=== PATIENT | female | born 1985 | race Caucasian/White ===

== ENCOUNTER 2016-08-15 11:53 | Emergency (ER) | payer MEDICAID ==
[~2016-08-15] VITALS: Ht 157.5 cm; Wt 93.0 kg
[~2016-08-15 11:53] MED LIST: PREN1TAB49 PO
[2016-08-15 11:56] VITALS: Ht 157.5 cm; Wt 93.0 kg
[2016-08-15] MEDS ORDERED: morphine 4 MG/ML VIAL IV STA (13:47)
[2016-08-15] MEDS ORDERED: LIDOCAINE/MYLANTA 40 ML BTL PO STA (13:47)
[2016-08-15] MEDS ORDERED: SOD CHLORIDE 0.9% 1,000 ML IV STA (13:47)
[2016-08-15 14:18] LABS: ADD UMIC YES; URINE BILIRUBIN (Dip) NEGATIVE (NEGATIVE); URINE BLOOD (Dip) TRACE (NEGATIVE); URINE COLOR LT. YELLOW (YELLOW); URINE GLUCOSE (Dip) NEGATIVE (NEGATIVE); URINE KETONES (Dip) NEGATIVE (NEGATIVE); URINE LEUKOCYTE ESTERASE (Dip) NEGATIVE (NEGATIVE); URINE NITRITE (Dip) POSITIVE (NEGATIVE); URINE TOTAL PROTEIN (Dip) NEGATIVE (NEGATIVE); URINE UROBILINOGEN (Dip) 0.2 E.U./dL (0.1-1.0)
[2016-08-15 14:19] LABS: BASOPHILS % 0.4 % (0.0-2.0); EOSINOPHILS % 0.5 % (0.0-7.0); HEMOGLOBIN 12.4 g/dl (12.0-16.0); LYMPHOCYTES % 20.3 % (15.0-51.0); MEAN CORPUSCULAR HGB CONC 33.4 g/dl (32.0-37.0); MEAN CORPUSCULAR VOLUME 83.8 fl (82.0-101.0); MEAN PLATELET VOLUME 9.7 fl (7.4-10.4); MONOCYTE # 0.4 10^3/ul (0.3-0.9); MONOCYTES % 4.2 % (0.0-11.0); NEUTROPHIL # 7.5 10^3/ul (1.6-7.5); NEUTROPHILS % 74.6 % (39.0-77.0); PLATELET COUNT 254 10^3/UL (140-440); RED BLOOD COUNT 4.42 10^6/ul (4.20-5.40)
[2016-08-15 14:21] LABS: CONDITION 1; LH ANALYZER COMMENTS 1
[2016-08-15 14:26] LABS: ALBUMIN 4.4 g/dl (3.3-4.9); POTASSIUM 3.8 mmol/L (3.5-5.1)
[2016-08-15 14:28] LABS: BILIRUBIN,INDIRECT 0.3 mg/dl (0-1.1); BILIRUBIN,TOTAL 0.3 mg/dl (0.2-1.3); CREATININE 0.52 mg/dl (0.44-1.00)
[2016-08-15 14:29] LABS: ALBUMIN/GLOBULIN RATIO 1.07; CALCIUM 9.3 mg/dl (8.4-10.2); TOTAL PROTEIN 8.5 g/dl (6.1-8.1)
[2016-08-15 14:38] LABS: BACTERIA,URINE MODERATE; URINE RBCS 0-2 /HPF (0)
[2016-08-15] MEDS ORDERED: CEFTRIAXONE 1 GM/50 ML (PMX) 50 ML IVPB ONE (15:00)
--- NOTE | 2016-08-15 15:15 | RADRPT ---
PROCEDURE: US Abdomen. CLINICAL INDICATION: abdominal pain TECHNIQUE: Multiple real-time images were acquired of the patient's right upper quadrant abdomen a nd retroperitoneum utilizing a high resolution transducer. COMPARISON: None FINDINGS: The liver demonstrates normal echogenicity. The liver is normal in size and no focal solid lesions are seen. The liver measures 15.3 cm in length. The portal vein is patent with normal direction of f low. No intrahepatic biliary dilatation is seen. The gallbladder is not well seen. There are multiple echogenic structures in the region of the gall bladder, likely represents a gallbladder filled with stones. The gallbladder wall is not well seen. . The common bile duct measures 6 mm in maximal dimension. The visualized portions of the pancreas are unremarkable. The tail of the pancreas is not seen. No free fluid is identified. The right kidney is normal in size, and demonstrate normal echogenicity and cortical thickness. The right kidney measures 10.7 cm in long dimension. There is no evidence of hydronephrosis. There are no kidney stones. RPTAT: AA IMPRESSION: Gallbladder not well seen, probably filled with calcified stones. Mildly dilated CBD. .Yuri Balderrama MD, MD Date Time Electronically viewed and signed by .Yuri Balderrama MD, MD on 08/15/2016 15:14 .S/
[2016-08-15] MEDS ORDERED: ONDA4TAB14 PO (15:53)
[2016-08-15] MEDS ORDERED: CIPR500T4 PO (15:53)
[2016-08-15] MEDS ORDERED: HYDR-906 PO (15:53)
--- NOTE | 2016-08-15 16:00 | ERD ---
ER Documentation Chief Complaint Date/Time DATE: 08/15/16 TIME: 15:54 Chief Complaint Epigastric pain and vomiting since this morning, vomited 10 x's since 1000. HPI Patient is a 30-year-old female she complains of epigastric pain that started today she describes it as a squeezing sensation. She vomited 10 times yesterday she vomited food and white foam. No fevers chills diarrhea no UTI symptoms. Last menstrual period was July 25. She has had 2 C-sections no past medical history no medications no allergies. ROS All systems reviewed and are negative except as per history of present illness. Medications Home Meds Active Scripts Ciprofloxacin Hcl* (Ciprofloxacin Hcl*) 500 Mg Tablet, 500 MG PO BID for 5 Days , TAB Prov:HERMES OWENS DO 08/15/16 Ondansetron (Ondansetron Odt) 4 Mg Tab.rapdis, 4 MG PO Q6H Y for NAUSEA AND/OR VOMITING, #10 TAB Prov:HERMES OWENS DO 08/15/16 Hydrocodone/Acetaminophen ([place] 5-325 Tablet) 1 Each Tablet, 1 TAB PO Q6H Y for PAIN, #7 TAB Prov:HERMES OWENS DO 08/15/16 Reported Medications Vits W-Ca,Fe,Fa(<1MG) () 1 Tab Tablet, 1 TAB PO DAILY 09/03/12 Allergies Allergies: Coded Allergies: No Known Allergies (Verified Allergy, Unknown, 08/28/13) PMhx/Soc Medical and Surgical Hx: pt denies Medical Hx History of Surgery: Yes () Anesthesia Reaction: No Hx Neurological Disorder: No Hx Respiratory Disorders: No Hx Cardiac Disorders: No Hx Psychiatric Problems: No Hx Miscellaneous Medical Probl: No Hx Alcohol Use: No Hx Substance Use: No Hx Tobacco Use: No Smoking Status: Never smoker Physical Exam Vitals Vital Signs Date Time Temp Pulse Resp B/P Pulse Ox O2 Delivery O2 Flow Rate FiO2 08/15/16 11:56 97.5 84 16 118/75 98 Physical Exam Const: [Alert oriented 4, well-nourished well-developed nontoxic- appearing no apparent distress, interacts appropriately] Head: [Normocephalic/atraumatic, no scalp lesions] Eyes: [Normal Conjunctiva, PERRLA, EOMI no conjunctival injection no conjunctival discharge] ENT: [Normal External Ears, Nose and Mouth, no tonsillar exudates no tonsillar erythema no tonsillar edema oropharynx no erythema. bilateral ear canals are patent, bilateral tympanic membranes nonerythematous.] Neck: [Full range of motion. No meningismus. No cervical lymphadenopathy] Resp: [Clear to auscultation bilaterally, no wheezes rhonchi or rales, breathing normally, no tachypnea no nasal flaring no grunting no accessory muscle use no retractions] Cardio: [Regular rate and rhythm, no murmurs] Abd: [Soft, positive epigastric tenderness to palpation, non distended. Normal bowel sounds, no rebound rigidity or guarding. Normoactive bowel sounds no flank tenderness, negative McBurney's negative Peters sign.] Skin: [No petechiae or rashes, no hives no urticaria no abscess no laceration no new warmth] Back: [No midline or flank tenderness, full range of motion without pain ] Ext: [No cyanosis, clubbing or edema] Neuro: M/S: Alert and oriented 4. Face: EOMI, face and pharynx with normal sensation and function Motor: Normal strength throughout, muscle strength is 5 out of 5 bilateral upper extremity and bilateral lower extremity Sensation: Normal sensation throughout Speech: Normal Cerebel: Normal coordination Normal gait DTR: 2+ and symmetric upper/lower extremities Psych: [Normal Mood and Affect, no suicidal ideation or homicide ideation] Result Diagram: 08/15/16 1400 08/15/16 1400 Results 24 hrs Laboratory Tests Test 08/15/16 14:00 Alanine Aminotransferase (ALT/SGPT) 26IU/L Albumin 4.4g/dl Albumin/Globulin Ratio 1.07 Alkaline Phosphatase 82IU/L Anion Gap 17 Aspartate Amino Transf (AST/SGOT) 22IU/L Basophils # 0.010^3/ul Basophils % 0.4% Blood Morphology Comment Blood Urea Nitrogen 12mg/dl Calcium Level 9.3mg/dl Carbon Dioxide Level 25mmol/L Chloride Level 101mmol/L Creatinine 0.52mg/dl Direct Bilirubin 0.00mg/dl Eosinophils # 0.010^3/ul Eosinophils % 0.5% Globulin 4.10g/dl Glucose Level 99mg/dl Hematocrit 37.0% Hemoglobin 12.4g/dl Indirect Bilirubin 0.3mg/dl Lipase 89U/L Lymphocytes # 2.010^3/ul Lymphocytes % 20.3% Mean Corpuscular Hemoglobin 28.0pg Mean Corpuscular Hemoglobin Concent 33.4g/dl Mean Corpuscular Volume 83.8fl Mean Platelet Volume 9.7fl Monocytes # 0.410^3/ul Monocytes % 4.2% Neutrophils # 7.510^3/ul Neutrophils % 74.6% Nucleated Red Blood Cells # 0.010^3/ul Nucleated Red Blood Cells % 0.0/100WBC Platelet Count 30820^3/UL Potassium Level 3.8mmol/L Red Blood Count 4.4210^6/ul Red Cell Distribution Width 15.0% Sodium Level 139mmol/L Total Bilirubin 0.3mg/dl Total Protein 8.5g/dl Urine Bacteria MODERATE Urine Bilirubin NEGATIVE Urine Clarity CLEAR Urine Color LT. YELLOW Urine Glucose NEGATIVE% Urine Hemoglobin TRACE Urine Ketones NEGATIVE Urine Leukocyte Esterase NEGATIVE Urine Microscopic RBC 0-2/HPF Urine Microscopic WBC 0-2/HPF Urine Nitrite POSITIVE Urine Specific [place] >=1.030 Urine Total Protein NEGATIVE Urine Urobilinogen 0.2 E.U./dL Urine pH 5.5 White Blood Count 10.010^3/ul Current Medications Medications (Trade) Dose Ordered Sig/Dagmar Route PRN Reason Start Time Stop Time Status Last Admin Dose Admin Sodium Chloride (NS) 1,000 ml @ 1,000 mls/hr Q1H STAT IV 08/15/16 13:47 08/15/16 14:46 DC 08/15/16 14:20 Morphine Sulfate (morphine) 4 mg ONCE STAT IV 08/15/16 13:47 08/15/16 13:49 DC 08/15/16 14:21 Miscellaneous Medication 40 ml 40 ml ONCE STAT PO 08/15/16 13:47 08/15/16 13:49 DC 08/15/16 14:21 Ceftriaxone Sodium (Rocephin) 50 ml @ 100 mls/hr ONCE ONCE IVPB 08/15/16 15:00 08/15/16 15:29 DC 08/15/16 15:[address] [address] Radiology Main Line: [phone] DIAGNOSTIC IMAGING REPORT Patient: SHARLA NUGENT : 1985 Age: 30 Sex: F [id number] DOS: 08/15/16 1347 Ordering MD: HERMES OWENS DO Location: [facility]TE Room/Bed: PROCEDURE: US Abdomen. CLINICAL INDICATION: abdominal pain TECHNIQUE: Multiple real-time images were acquired of the patient's right upper quadrant abdomen and retroperitoneum utilizing a high resolution transducer. COMPARISON: None FINDINGS: The liver demonstrates normal echogenicity. The liver is normal in size and no focal solid lesions are seen. The liver measures 15.3 cm in length. The portal vein is patent with normal direction of flow. No intrahepatic biliary dilatation is seen. The gallbladder is not well seen. There are multiple echogenic structures in the region of the gallbladder, likely represents a gallbladder filled with stones. The gallbladder wall is not well seen.. The common bile duct measures 6 mm in maximal dimension. The visualized portions of the pancreas are unremarkable. The tail of the pancreas is not seen. No free fluid is identified. The right kidney is normal in size, and demonstrate normal echogenicity and cortical thickness. The right kidney measures 10.7 cm in long dimension. There is no evidence of hydronephrosis. There are no kidney stones. RPTAT: AA IMPRESSION: Gallbladder not well seen, probably filled with calcified stones. Mildly dilated CBD. .Yuri Balderrama MD, MD Date Time Electronically viewed and signed by .Yuri Balderrama MD, MD on 08/15/2016 15: 14 .S/ CC: HERMES OWENS DO Procedures/MDM Urine was negative, urine shows nitrite so she likely has a UTI and we gave her Rocephin will give antibiotics for home. The ultrasound shows gallbladder likely filled with gallstones but I doubt cholecystitis or cholangitis or choledocholithiasis as her LFTs are normal she has no white blood cell count and no fever she has negative Peters's. Lipase is normal so I doubt pancreatitis. Her common bile duct is mildly dilated so she should see a surgeon outpatient. I doubt pyelonephritis that she has no fever no flank pain. She has no right lower quadrant pain so I doubt appendicitis. I doubt small bowel obstruction or diverticulitis or gastroparesis. She should see a surgeon soon she should return to the emergency room should she have any fevers chills or other concerning symptoms. Will give her antibiotics for the UTI and pain medications and nausea medications. ED precautions discussed and follow- up PCP a general surgeon. Departure Diagnosis: Primary Impression: Acute epigastric pain Additional Impressions: Gallstones Acute UTI Condition: Stable Patient Instructions: What Are Gallstones?, Treating Gallstones, Understanding Urinary Tract Infections (UTIs) Referrals: MAURY HAMMONDS MD, SAMUEL MD KOSARI, KAMBIZ M.D. NAZARIAN, JAMSHID SALEHI, PARVIZ MD TOOMARI,RODERICK OLIVO,EDGAR VALENCIA,JORGE Garner MD [facility] YOU HAVE RECEIVED A MEDICAL SCREENING EXAM AND THE RESULTS INDICATE THAT YOU DO NOT HAVE A CONDITION THAT REQUIRES URGENT TREATMENT IN THE EMERGENCY DEPARTMENT. FURTHER EVALUATION AND TREATMENT OF YOUR CONDITION CAN WAIT UNTIL YOU ARE SEEN IN YOUR DOCTORS OFFICE WITHIN THE NEXT 1-2 DAYS. IT IS YOUR RESPONSIBILITY TO MAKE AN APPOINTMENT FOR FOL-UP CARE. IF YOU HAVE A PRIMARY DOCTOR --you should call your primary doctor and schedule an appointment IF YOU DO NOT HAVE A PRIMARY DOCTOR YOU CAN CALL OUR PHYSICIAN REFERRAL HOTLINE AT IF YOU CAN NOT AFFORD TO SEE A PHYSICIAN YOU CAN CHOSE FROM THE FOLLOWING [facility] CLINICS [facility] [address] [facility] [address] [facility] [facility]. [facility] [address] [facility]. [facility] [address] [facility]. [facility] [address] [facility]. [facility] [address] [facility]. [facility] YOU HAVE RECEIVED A MEDICAL SCREENING EXAM AND THE RESULTS INDICATE THAT YOU DO NOT HAVE A CONDITION THAT REQUIRES URGENT TREATMENT IN THE EMERGENCY DEPARTMENT. FURTHER EVALUATION AND TREATMENT OF YOUR CONDITION CAN WAIT UNTIL YOU ARE SEEN IN YOUR DOCTORS OFFICE WITHIN THE NEXT 1-2 DAYS. IT IS YOUR RESPONSIBILITY TO MAKE AN APPOINTMENT FOR FOLOW-UP CARE. IF YOU HAVE A PRIMARY DOCTOR --you should call your primary doctor and schedule and appointment IF YOU DO NOT HAVE A PRIMARY DOCTOR YOU CAN CALL OUR PHYSICIAN REFERRAL HOTLINE AT . IF YOU CAN NOT AFFORD TO SEE A PHYSICIAN YOU CAN CHOSE FROM THE FOLLOWING [facility]: [facility] [address] [place] [address] [facility] [address] [place] [address] [facility] [address] [place] [address] [facility] () Usted se ring hecho un examen mdico de control que le indica que no est en luisa condicin que requiera tratamiento urgente en el Departamento de Emergencia. Un estudio ms profundo y el tratamiento de daley condicin pueden esperar sin ningn riesgo hasta que usted sea atendida/o en el consultorio de daley mdico o luisa cl karen. Es responsabilidad suya arreglar luisa francesca para el seguimiento del angeline. MANEJO DE CONDICIONES NO URGENTES EN EL FUTURO 1) Si usted tiene un mdico de atencin primaria: Usted debera llamar a daley mdico de atencin primaria antes de venir al departamento de emergencia. Despus de las horas de consultorio, daley doctor o daley asociado/a est disponible por telfono. El mdico o enfermero de dorie en el servicio telefnico puede asesorarle por emmanuel medio para atender el problema, o angeline contrario se puede programar luisa francesca. 2) Si usted no tiene un mdico de atencin primaria: Llame al mdico o clnica de referencia que aparece abajo keven las horas de consultorio para hacer luisa francesca para que le vean. CLINICAS: [facility] [phone] [address] [facility] [phone] [address] [facility]. [facility] [phone] [address] [facility]. [facility] [phone] [address] [facility]. [facility] [phone] [address] [facility]. [phone] [address] [facility]. [facility] () Usted se ring hecho un examen mdico de control que le indica que no est en luisa condicin que requiera tratamiento urgente en el Departamento de Emergencia. Un estudio ms profundo y el tratamiento de daley condicin pueden esperar sin ningn riesgo hasta que usted sea atendida/o en el consultorio de daley mdico o luisa cl karen. Es responsabilidad suya arreglar luisa francesca para el seguimiento del angeline. MANEJO DE CONDICIONES NO URGENTES EN EL FUTURO 1) Si usted tiene un mdico de atencin primaria: Usted debera llamar a daley mdico de atencin primaria antes de venir al departamento de emergencia. Despus de las horas de consultorio, daley doctor o daley asociado/a est disponible por telfono. El mdico o enfermero de dorie en el servicio telefnico puede asesorarle por emmanuel medio para atender el problema, o angeline contrario se puede programar luisa francesca. 2) Si usted no tiene un mdico de atencin primaria: Llame al mdico o condado institucions de referencia que aparece abajo keven las horas de consultorio para hacer luisa francesca para que le vean. SI USTED NO PUEDE PAGAR PARA JASBIR UN MEDICO puede ir a: [facility] [address] [place] [address] [facility] [address] [place] [address] [facility] [address] [place] [address] [facility] [address] [place], [place] [id number] HERMES OWENS DO Aug 15, 2016 16:00
[2016-08-15 16:02] VITALS: BP 115/60; PULSE 62; RESP 20; TEMP 98
== END 2016-08-15 16:04 | disposition home or self-care (01) ==
LOC: FTE 11:53
DX: R10.13 Epigastric pain (principal); K80.20 Calculus of gallbladder without cholecystitis without obstruction; N39.0 Urinary tract infection, site not specified; R11.10 Vomiting, unspecified
CPT/HCPCS: 36415; 76705; 80053; 81001; 83690; 85025; 96374; 96375; J0696; J2270; J7030; Z7502; Z7610; 81003

== ENCOUNTER 2017-07-12 19:11 | Emergency (ER) | payer MEDICAID ==
[~2017-07-12] VITALS: Ht 167.6 cm; Wt 96.5 kg
[~2017-07-12 19:11] MED LIST changes: +CIPR500T4 PO; +HYDR-906 PO; +ONDA4TAB14 PO
[2017-07-12 19:36] VITALS: Ht 167.6 cm; Wt 96.5 kg
[2017-07-12] MEDS ORDERED: morphine 4 MG/ML VIAL IV STA (20:46)
[2017-07-12] MEDS ORDERED: SOD CHLORIDE 0.9% 1,000 ML IV STA (20:46)
[2017-07-12] MEDS ORDERED: ONDANSETRON 4 MG INJ IV STA (20:46)
--- NOTE | 2017-07-12 20:50 | ERD ---
ER Documentation Chief Complaint Chief Complaint LLQ abd pain x 2 weeks on and off, vomiting today HPI This is a 31-year-old female presents to the ER with left upper quadrant pain that radiates through her left upper quadrant and around into her epigastric area. Patient is also complaining of nonbilious nonbloody vomiting with watery diarrhea and fevers. All her symptoms have been going on over the last 2 weeks. Pain is described as sharp and sometimes crampy in nature and is intermittent. She has not tried anything for the pain. Patient denies any pelvic pain she denies any urinary frequency or dysuria. She denies any vaginal discharge. Patient is currently sexually active however she is taking control. ROS 12 point review of systems was done, all negative except per HPI. Medications Home Meds Active Scripts Dicyclomine Hcl* (Bentyl*) 10 Mg Capsule, 10 MG PO QID for 7 Days, CAP Prov:WU HONG 07/12/17 Loperamide Hcl* (Imodium*) 2 Mg Capsule, 2 MG PO .AFTER EA LOOSE BM Y for DIARRHEA, #10 TAB Prov:WU HONG 07/12/17 Ondansetron Hcl* (Zofran*) 4 Mg Tab, 4 MG PO Q4H Y for NAUSEA AND OR VOMITING for 3 Days, TAB Prov:WU HONG 07/12/17 Ciprofloxacin Hcl* (Ciprofloxacin Hcl*) 500 Mg Tablet, 500 MG PO BID for 5 Days , TAB Prov:HERMES OWENS DO 08/15/16 Ondansetron (Ondansetron Odt) 4 Mg Tab.rapdis, 4 MG PO Q6H Y for NAUSEA AND/OR VOMITING, #10 TAB Prov:HERMES OWENS DO 08/15/16 Hydrocodone/Acetaminophen ([place] 5-325 Tablet) 1 Each Tablet, 1 TAB PO Q6H Y for PAIN, #7 TAB Prov:HERMES OWENS DO 08/15/16 Reported Medications Vits W-Ca,Fe,Fa(<1MG) () 1 Tab Tablet, 1 TAB PO DAILY 09/03/12 Allergies Allergies: Coded Allergies: No Known Allergies (Verified Allergy, Unknown, 08/28/13) PMhx/Soc History of Surgery: Yes () Anesthesia Reaction: No Hx Neurological Disorder: No Hx Respiratory Disorders: No Hx Cardiac Disorders: No Hx Psychiatric Problems: No Hx Miscellaneous Medical Probl: No Hx Alcohol Use: No Hx Substance Use: No Hx Tobacco Use: No Smoking Status: Never smoker Physical Exam Vitals Vital Signs Date Time Temp Pulse Resp B/P Pulse Ox O2 Delivery O2 Flow Rate FiO2 07/12/17 19:36 98.5 79 20 136/80 100 Physical Exam GENERAL: The patient is well developed and appropriate for usual state of health , in no apparent distress. HEENT: Atraumatic. CHEST: Clear to auscultation bilaterally. There are no rales, wheezes or rhonchi. HEART: Regular rate and rhythm. No murmurs, clicks, rubs or gallops. ABDOMEN: Soft, nontender and nondistended. Good bowel sounds. No rebound or guarding. No gross peritonitis. No gross organomegaly or masses. No Peters sign or McBurney point tenderness. BACK: No midline or flank tenderness. NEURO: Alert and oriented. SKIN: There is no apparent rash or petechia. The skin is warm and dry. Result Diagram: 07/12/17204807/12/172048 Results 24 hrs Laboratory Tests Test 07/12/17 20:49 07/12/17 20:57 White Blood Count 8.010^3/ul Red Blood Count 4.2010^6/ul Hemoglobin 11.7g/dl Hematocrit 36.8% Mean Corpuscular Volume 87.6fl Mean Corpuscular Hemoglobin 27.9pg Mean Corpuscular Hemoglobin Concent 31.8g/dl Red Cell Distribution Width 14.2% Platelet Count 34051^3/UL Mean Platelet Volume 11.7fl Neutrophils % 53.4% Lymphocytes % 37.9% Monocytes % 5.5% Eosinophils % 2.5% Basophils % 0.6% Nucleated Red Blood Cells % 0.0/100WBC Neutrophils # 4.310^3/ul Lymphocytes # 3.110^3/ul Monocytes # 0.410^3/ul Eosinophils # 0.210^3/ul Basophils # 0.110^3/ul Nucleated Red Blood Cells # 0.010^3/ul Sodium Level 140mmol/L Potassium Level 3.9mmol/L Chloride Level 105mmol/L Carbon Dioxide Level 26mmol/L Anion Gap 13 Blood Urea Nitrogen 15mg/dl Creatinine 0.68mg/dl Glucose Level 100mg/dl Calcium Level 9.1mg/dl Total Bilirubin 0.0mg/dl Direct Bilirubin 0.00mg/dl Indirect Bilirubin 0.0mg/dl Aspartate Amino Transf (AST/SGOT) 30IU/L Alanine Aminotransferase (ALT/SGPT) 51IU/L Alkaline Phosphatase 83IU/L Total Protein 7.5g/dl Albumin 4.0g/dl Globulin 3.50g/dl Albumin/Globulin Ratio 1.14 Lipase 63U/L Urine Color YELLOW Urine Clarity CLEAR Urine pH 7.0 Urine Specific [place] 1.026 Urine Ketones NEGATIVEmg/dL Urine Nitrite NEGATIVEmg/dL Urine Bilirubin NEGATIVEmg/dL Urine Urobilinogen 1+mg/dL Urine Leukocyte Esterase NEGATIVELeu/ul Urine Hemoglobin NEGATIVEmg/dL Urine Glucose NEGATIVEmg/dL Urine Total Protein NEGATIVEmg/dl Current Medications Medications (Trade) Dose Ordered Sig/Dagmar Route PRN Reason Start Time Stop Time Status Last Admin Dose Admin Sodium Chloride (NS) 1,000 ml @ 1,000 mls/hr Q1H STAT IV 07/12/17 20:46 07/12/17 21:45 DC 07/12/17 21:18 Morphine Sulfate (morphine) 6 mg ONCE STAT IV 07/12/17 20:46 07/12/17 20:47 DC 07/12/17 21:18 Ondansetron HCl (Zofran Inj) 4 mg ONCE STAT IV 07/12/17 20:46 07/12/17 20:47 DC 07/12/17 21:18 Procedures/MDM This is a 31-year-old female presents to the ER with left lower quadrant pain that radiates to her left upper quadrant or epigastric area. Patient is afebrile and well-appearing, her pain was controlled in the ER she did not have any episodes of vomiting. Patient may have a viral illness that she does have nausea vomiting and diarrhea. She was sent home with Imodium and Zofran. Suspicion for acute abdomen is low. Patient's abdominal examination is benign, and she does have a normal CT scan other than known gallstones. Patient denies any right upper quadrant pain and did not have any right upper quadrant tenderness on physical examination. She does not have an elevation in her liver enzymes, there is no elevation in her bilirubin or her lipase. There is a slight elevation in white blood cells, likely due to viral illness. Suspicion for cholecystitis ,choledocholithiasis, cholangitis is low. Patient is to follow-up with her primary care doctor within 1-2 days return to ER sooner if symptoms worsen. My medical decision making sure with the patient she understands and agrees with plan. Departure Diagnosis: Primary Impression: Abdominal pain Condition: Stable WU HONG Jul 12, 2017 20:50
[2017-07-12 21:23] LABS: BASOPHIL # 0.1 10^3/ul (0.0-0.1); BASOPHILS % 0.6 % (0.0-2.0); EOSINOPHILS # 0.2 10^3/ul (0.0-0.5); EOSINOPHILS % 2.5 % (0.0-7.0); HEMATOCRIT 36.8 % (37.0-47.0); HEMOGLOBIN 11.7 g/dl (12.0-16.0); LYMPHOCYTES # 3.1 10^3/ul (0.8-2.9); LYMPHOCYTES % 37.9 % (15.0-51.0); MEAN CORPUSCULAR HEMOGLOBIN 27.9 pg (29.0-33.0); MEAN CORPUSCULAR HGB CONC 31.8 g/dl (32.0-37.0); MEAN CORPUSCULAR VOLUME 87.6 fl (82.0-101.0); MEAN PLATELET VOLUME 11.7 fl (7.4-10.4); MONOCYTE # 0.4 10^3/ul (0.3-0.9); MONOCYTES % 5.5 % (0.0-11.0); NEUTROPHIL # 4.3 10^3/ul (1.6-7.5); NEUTROPHILS % 53.4 % (39.0-77.0); PLATELET COUNT 297 10^3/UL (140-415); RED CELL DISTRIBUTION WIDTH 14.2 % (11.5-14.5)
[2017-07-12 21:25] LABS: ADD UMIC NO; UR ASCORBIC ACID NEGATIVE (NEGATIVE); UR BILIRUBIN (Dip) NEGATIVE (NEGATIVE); UR BLOOD (Dip) NEGATIVE (NEGATIVE); UR CLARITY CLEAR (CLEAR); UR COLOR YELLOW (YELLOW); UR GLUCOSE (Dip) NEGATIVE (NEGATIVE); UR KETONES (Dip) NEGATIVE (NEGATIVE); UR LEUKOCYTE ESTERASE (Dip) NEGATIVE Leu/ul (NEGATIVE); UR NITRITE (Dip) NEGATIVE (NEGATIVE); UR SPECIFIC GRAVITY (Dip) 1.026 (1.003-1.030); UR TOTAL PROTEIN (Dip) NEGATIVE (NEGATIVE); UR UROBILINOGEN (Dip) 1+ mg/dL (NEGATIVE)
[2017-07-12 21:48] LABS: ALBUMIN/GLOBULIN RATIO 1.14; CALCIUM 9.1 mg/dl (8.4-10.2); CREATININE 0.68 mg/dl (0.44-1.00); POTASSIUM 3.9 mmol/L (3.5-5.1); TOTAL PROTEIN 7.5 g/dl (6.1-8.1)
--- NOTE | 2017-07-12 22:09 | RADRPT ---
PROCEDURE: CT Abdomen and Pelvis without contrast. CLINICAL INDICATION: Pain. TECHNIQUE: CT scan of the abdomen and pelvis was performed on a multidetector slice CT scanner. No intravenous contrast material was utilized. Sagittal and coronal reformatted images were obtained fr om the axial source images. Images were reviewed on a high-resolution PACS workstation. Exam CTDlvol = 22 mGy and DLP = 1309 Gy-cm. One of the following 3 dose reduction techniques were used: Automate d exposure control; adjustment of the mA and/or kV according to patient size; or use of iterative re construction technique. DICOM images are available. COMPARISON: Right upper quadrant ultrasound 08/15/2016. FINDINGS: There is no obstruction or ileus. The appendix is well visualized and normal in size. There is no evidence for diverticulitis. There is no free fluid. The liver is enlarged 19 cm length.. No intrahepatic lesions are identified. Gallbladder is partiall y george pain multiple gallstones. The gallbladder is otherwise normal in appearance. There is no definite biliary ductal dilation. Pancreas is normal in appearance. The spleen is unremarkable. T here are no adrenal masses. The aorta is normal caliber. Kidneys are normal in appearance without hydronephrosis, mass or calculus. There is no perinephric c ollection. Ureters are of normal caliber and without evidence for an obstructing calculus The urinar y bladder is normal in appearance. The uterus and ovaries are grossly unremarkable. Limited evaluation of the lung bases is unremarkable. The bones are unremarkable. IMPRESSION: 1. Cholelithiasis. No CT evidence for acute cholecystitis or biliary obstruction. Correlation right upper quadrant ultrasound is recommended. 2. Hepatomegaly. 3. No bowel obstruction or ileus. 4. No evidence for appendicitis or diverticulitis. 5. No obstructive uropathy. 6. Otherwise negative. RPTAT: HMVK .Mike Reaves MD, Date Time Electronically viewed and signed by .Mike Reaves MD, MD on 07/12/2017 22:09 .K/
[2017-07-12] MEDS ORDERED: ONDA-43 PO (23:20)
[2017-07-12] MEDS ORDERED: LOPE2CAP PO (23:23)
[2017-07-12] MEDS ORDERED: DICY10CA60 PO (23:23)
[2017-07-12 23:36] VITALS: BP 128/72; PULSE 71; RESP 18; TEMP 98.6
== END 2017-07-12 23:38 | disposition home or self-care (01) ==
LOC: FTE 19:11
DX: R10.12 Left upper quadrant pain (principal)
CPT/HCPCS: 36415; 74176; 80053; 81003; 83690; 85025; 96374; 96375; J2270; J2405; J7030; Z7502